=== PATIENT | male | born 1970 | race Caucasian/White ===

== ENCOUNTER 2020-03-11 12:38 | Emergency (ER) | payer BC, OTHER ==
--- NOTE | 2020-03-11 13:36 | ER Document Report ---
ED General - General Chief Complaint: Sore Throat Stated Complaint: HEARING LOSS/CONGESTION Notes: Patient is a 50-year-old male with a history of hypertension, chronic pain, cluster headaches who presents to the emergency department the chief complaint of hearing trouble. The patient states she was seen recently outpatient at an urgent care diagnosed with sinusitis and started on Augmentin. Patient reports he took his first dose of Augmentin last night after dinner and about 2 hours later began vomiting with some scant diarrhea. He ceased to the medication, called today for alternate prescription to which they advised he come in for evaluation and the patient reports upon arrival they could not find them in the system and told him to come to the emergency department for evaluation. He denies any fever or recent travel. Denies any rashes or coughing. He admits to an irritated, scratchy throat. States there is no pain with swallowing. States he has some nasal congestion and a frontal headache that is intermittent, worse on the right frontal but states the worst of his symptoms are muffled hearing that waxes and wanes in both years. Denies any ongoing vomiting or diarrhea. No abdominal pain. No known sick contacts. No known exposures to coronavirus. Past Medical History - Social History Smoking Status: Current Every Day Smoker Chew tobacco use (# tins/day): No Frequency of alcohol use: Occasional Drug Abuse: None Family History: Reviewed & Not Pertinent Patient has homicidal ideation: No - Past Medical History Cardiac Medical History: Reports: Hx Hypertension GI Medical History: Reports: Hx Gastroesophageal Reflux Disease Past Surgical History: Reports: Hx Nose Surgery, Hx Orthopedic Surgery - knees Review of Systems - Review of Systems Notes: As per HPI otherwise negative Physical Exam - Vital signs Vitals: Temp 98.2 F 03/11/20 13:05 - General General appearance: Appears well, Alert In distress: None - HEENT Head: Normocephalic, Atraumatic Eyes: Normal Conjunctiva: Normal Extraocular movements intact: Yes Eyelashes: Normal Pupils: PERRL Ears: Other - Normal external ears External canal: Normal Tympanic membrane: Other - Bulging TMs bilaterally with posterior effusions. Both TMs are pearly orozco. Sinus: Tenderness - Right frontal Nasal: Other - Turbinate edema and erythema bilaterally. Mouth/Lips: Normal Mucous membranes: Dry Pharynx: Erythema - Erythematous posterior pharynx. Minimal postnasal drainage. No edema. Uvula midline. Palate secretions well. No sublingual or submental swelling. No trismus. Neck: Normal. No: Lymphadenopathy - Respiratory Respiratory status: No respiratory distress Chest status: Nontender Breath sounds: Normal Chest palpation: Normal - Cardiovascular Rhythm: Regular Heart sounds: Normal auscultation - Neurological Neuro grossly intact: Yes Cognition: Normal Orientation: AAOx4 - Psychological Associated symptoms: Normal affect, Normal mood - Skin Skin Temperature: Warm Skin Moisture: Dry Skin Color: Normal Course - Re-evaluation Re-evalutation: 03/11/20 13:36 Patient with a history and physical consistent with a sinusitis. He will discontinue Augmentin. He will be started on a Medrol Dosepak and Claritin. Encouraged push clear fluids and rest. Counseled he return here or any ER immediately with any new, persistent or worsening symptoms. He will follow-up with his doctor in 2 to 3 days for reevaluation or sooner if worsening. He verbalized understood and agreed. - Vital Signs Vital signs: Temp Pulse Resp BP Pulse Ox 98.2 F 88 16 188/106 H 96 03/11/20 13:12 03/11/20 13:12 03/11/20 13:12 03/11/20 13:12 03/11/20 13:12 Discharge - Discharge Clinical Impression: History of hypertension Sinusitis Qualifiers: Sinusitis location: unspecified location Chronicity: acute Recurrence: not specified as recurrent Qualified Code(s): J01.90 - Acute sinusitis, unspecified Condition: Stable Disposition: HOME, SELF-CARE Instructions: Sinusitis ([facility]) Additional Instructions: Follow-up with your regular doctor in 2 to 3 days for reevaluation. Return here or any ER immediately with any new, persistent or worsening symptoms. Prescriptions: Loratadine [Allergy Relief] 10 mg PO DAILY #15 tablet Methylprednisolone [Medrol Dosepack (4 mg/Tab) 21 Tab/Dosepak] 4 mg PO ASDIR PRN #21 tab.ds.pk PRN Reason:
[2020-03-11 13:40] VITALS: BP 166/95
== END 2020-03-11 13:40 | disposition home or self-care (01) ==
LOC: ER 12:38
DX: J01.90 Acute sinusitis, unspecified (principal); I10 Essential (primary) hypertension; J02.9 Acute pharyngitis, unspecified; G89.29 Other chronic pain; R11.10 Vomiting, unspecified; R19.7 Diarrhea, unspecified; F17.200 Nicotine dependence, unspecified, uncomplicated
CPT/HCPCS: 99283

== ENCOUNTER 2020-04-05 17:38 | Emergency (ER) | payer OTHER ==
[2020-04-05] MEDS ORDERED: KETOROLAC TROMETHAMINE INJ/PF 30 MG/1 ML SDV IV ONE (18:20)
--- NOTE | 2020-04-05 18:21 | ER Document Report ---
ED Medical Screen (RME) - General Chief Complaint: Flank Pain Stated Complaint: FLANK PAIN Time Seen by Provider: 04/05/20 18:15 Primary Care Provider: PHYLLIS GARCÍA [Primary Care Provider] - Follow up as needed Notes: HPI: 50-year-old male with kidney stone history presenting with 6 days of a fairly constant right lower back pain. Has not had nausea vomiting questionable fevers. No penile or testicular pain no dysuria. No hematuria. Patient went to [facility] 2 days ago and they did a urinalysis did not show evidence of hematuria but placed him on Flomax and Vicodin for the discomfort. States the pain usually in the right lower back is worse in the morning seems to ease up throughout the day but has been fairly constant. Today he went to bend over to put socks on and had pain into the right lower quadrant region. Denies a specific trauma or injury PHYSICAL EXAMINATION: Mild tenderness through the right lower back right lateral flank region on palpation exam deferred in triage I have greeted and performed a rapid initial assessment of this patient. A comprehensive ED assessment and evaluation of the patient, analysis of test results and completion of medical decision making process will be conducted by an additional ED providers. - Related Data Allergies/Adverse Reactions: amoxicillin [From Augmentin] Allergy (Verified 04/05/20 18:13) clavulanic acid [From Augmentin] Allergy (Verified 04/05/20 18:13) Past Medical History - Social History Frequency of alcohol use: None Drug Abuse: None - Past Medical History Cardiac Medical History: Reports: Hx Hypertension GI Medical History: Reports: Hx Gastroesophageal Reflux Disease Past Surgical History: Reports: Hx Nose Surgery, Hx Orthopedic Surgery - knees Physical Exam - Vital signs Vitals: Temp Pulse Resp BP Pulse Ox 98.5 F 97 16 158/87 H 98 04/05/20 17:42 04/05/20 17:42 04/05/20 17:42 04/05/20 17:42 04/05/20 17:42 Course - Vital Signs Vital signs: Temp Pulse Resp BP Pulse Ox 98.5 F 97 16 158/87 H 98 04/05/20 17:42 04/05/20 17:42 04/05/20 17:42 04/05/20 17:42 04/05/20 17:42 Doctor's Discharge - Discharge Referrals: RICKY,PHYLLIS [Primary Care Provider] - Follow up as needed
[2020-04-05 19:04] LABS: ABSOLUTE EOSINOPHILS # (AUTO) 0.3 10^3/uL (0.0-0.6); ABSOLUTE LYMPHOCYTES (AUTO) 2.2 10^3/uL (0.5-4.7); ABSOLUTE MONOCYTES (AUTO) 0.8 10^3/uL (0.1-1.4); BASOPHILS % (AUTO) 0.4 % (0-2); EOSINOPHILS % (AUTO) 4.4 % (0-6); HEMATOCRIT 42.7 % (37.9-51.0); HEMOGLOBIN 14.8 g/dL (13.5-17.0); LYMPHOCYTES % (AUTO) 34.7 % (13-45); MEAN CORPUSCULAR HEMOGLOBIN 33.4 pg (27.0-33.4); MEAN CORPUSCULAR HGB CONC 34.7 g/dL (32.0-36.0); MEAN CORPUSCULAR VOLUME 96 fl (80-97); MONOCYTES % (AUTO) 13.2 % (3-13); PLATELET COUNT 307 10^3/uL (150-450); RED BLOOD COUNT 4.44 10^6/uL (4.35-5.55); RED CELL DISTRIBUTION WIDTH 14.4 % (11.5-14.0); SEGMENTED NEUTROPHILS % (AUTO) 47.3 % (42-78); TOTAL CELLS COUNTED % (AUTO) 100 %; WHITE BLOOD COUNT 6.3 10^3/uL (4.0-10.5)
[2020-04-05 19:07] LABS: APPEARANCE,URINE CLEAR; BILIRUBIN,URINE NEGATIVE (NEGATIVE); COLOR,URINE YELLOW; GLUCOSE, URINE NEGATIVE (NEGATIVE); KETONES,URINE NEGATIVE (NEGATIVE); LEUKOCYTE ESTERASE,URINE NEGATIVE (NEGATIVE); NITRITE,URINE NEGATIVE (NEGATIVE); PROTEIN,URINE NEGATIVE (NEGATIVE); URINE SPECIFIC GRAVITY 1.014; UROBILINOGEN,URINE NEGATIVE mg/dL (<2.0)
[2020-04-05 19:22] LABS: ALBUMIN 4.3 g/dL (3.5-5.0); ALKALINE PHOSPHATASE 116 U/L (38-126); ANION GAP 5 (5-19); ASPARTATE AMINO TRANSFERASE 26 U/L (17-59); BILIRUBIN,DIRECT 0.1 mg/dL (0.0-0.4); BILIRUBIN,TOTAL 0.3 mg/dL (0.2-1.3); BLOOD UREA NITROGEN 18 mg/dL (7-20); CALCIUM 10.1 mg/dL (8.4-10.2); CARBON DIOXIDE 33 mmol/L (22-30); CHLORIDE 99 mmol/L (98-107); GLUCOSE 98 mg/dL (75-110); POTASSIUM 3.8 mmol/L (3.6-5.0)
--- NOTE | 2020-04-05 20:28 | RADIOLOGY REPORT (SQ) ---
CT ABDOMEN PELVIS WITH IV CONTRAST HISTORY: Right flank pain. COMPARISON: None. TECHNIQUE: CT scan of the abdomen and pelvis was performed with IV contrast. This exam was performed according to our departmental dose-optimization program, which includes automated exposure control, adjustment of the mA and/or kV according to patient size and/or use of iterative reconstruction technique. FINDINGS: The lung bases are clear. No pleural or pericardial effusions. There is no hiatal hernia. The gallbladder is contracted, limiting evaluation. The liver, spleen, pancreas, adrenal glands, and left kidney are unremarkable. There is a 4 mm obstructing stone in the proximal right ureter but without hydronephrosis. The pelvic organs are normal. There has been a prior appendectomy. The remainder of the small and large bowel, including the stomach, are normal. No intraperitoneal adenopathy, free fluid or free air is seen. The aorta is normal caliber and contains atherosclerotic calcifications. There are mild degenerative changes of the spine. No abnormal hernia is seen. IMPRESSION: 4 mm obstructing stone in the proximal right ureter without hydronephrosis at this time.
--- NOTE | 2020-04-05 22:35 | ER Document Report ---
ED GI/ - General Chief Complaint: Flank Pain Stated Complaint: FLANK PAIN Time Seen by Provider: 04/05/20 18:15 Primary Care Provider: RADHA MIDDLETON MD [NO LOCAL MD] - Follow up as needed [facility] [Primary Care Provider] - Follow up as needed Mode of Arrival: Ambulatory Information source: Patient Notes: Patient is a 50-year-old male comes to emergency room with complaint of right flank pain. Patient states he knows he has a history of kidney stones proximally 2 months ago and he did get infected but he passed it on his own. He went to [facility] and was told that if his pain got out of control that he should go directly to the emergency room because they can fix it right away. Patient had an increase in discomfort and pain on his right side so he came into the emergency room. He had [facility] and he still has some. Patient received Toradol here in the emergency room and did get good relief down to about a 2 out of 5 but is now starting to build again. Patient does state that he does go to the [facility] and needs a referral to urology. TRAVEL OUTSIDE OF THE [place] IN LAST 30 DAYS: No - HPI Patient complains to provider of: Flank pain Onset: Yesterday - 2 days Timing/Duration: Gradual Quality of pain: Cramping, Sharp, Throbbing Severity at maximum: Moderate Pain Level: 3 Location: Right flank Associated symptoms: Nausea. denies: Chills, Dysuria, Hematuria, Vomiting Exacerbated by: Denies Relieved by: Denies Similar symptoms previously: Yes Recently seen / treated by doctor: Yes - Related Data Allergies/Adverse Reactions: amoxicillin [From Augmentin] Allergy (Verified 04/05/20 18:13) clavulanic acid [From Augmentin] Allergy (Verified 04/05/20 18:13) Past Medical History - General Information source: Patient - Social History Smoking Status: Current Every Day Smoker Cigarette use (# per day): Yes - Half pack Chew tobacco use (# tins/day): No Smoking Education Provided: Yes Frequency of alcohol use: None Drug Abuse: None Lives with: Family Family History: Reviewed & Not Pertinent - Past Medical History Cardiac Medical History: Reports: Hx Hypertension GI Medical History: Reports: Hx Gastroesophageal Reflux Disease Past Surgical History: Reports: Hx Nose Surgery, Hx Orthopedic Surgery - knees Review of Systems - Review of Systems Constitutional: No symptoms reported EENT: No symptoms reported Cardiovascular: No symptoms reported Respiratory: No symptoms reported Gastrointestinal: No symptoms reported Genitourinary: See HPI, Flank pain Male Genitourinary: No symptoms reported Musculoskeletal: No symptoms reported Skin: No symptoms reported Hematologic/Lymphatic: No symptoms reported Neurological/Psychological: No symptoms reported -: Yes All other systems reviewed and negative Physical Exam - Vital signs Vitals: Temp Pulse Resp BP Pulse Ox 98.5 F 97 16 158/87 H 98 04/05/20 17:42 04/05/20 17:42 04/05/20 17:42 04/05/20 17:42 04/05/20 17:42 Interpretation: Hypertensive - Notes Notes: PHYSICAL EXAMINATION: GENERAL: Patient is well-nourished well-developed 50-year-old male no apparent distress on physical exam today. Does appear a little uncomfortable. ENT: Nares patent, oropharynx clear without exudates. Moist mucous membranes. NECK: Normal range of motion, supple without lymphadenopathy LUNGS: Breath sounds clear to auscultation bilaterally and equal. No wheezes rales or rhonchi. HEART: Regular rate and rhythm without murmurs ABDOMEN: Soft, nontender, nondistended abdomen. No guarding, no rebound. No masses appreciated. Does display some mild tenderness to palpation and percussion on the right flank area. Musculoskeletal: Normal range of motion, no pitting or edema. No cyanosis. NEUROLOGICAL: Normal speech, normal gait. Normal sensory, motor exams PSYCH: Normal mood, normal affect. SKIN: Warm, Dry, normal turgor, no rashes or lesions noted. Course - Re-evaluation Re-evalutation: 04/05/20 22:[address] showed a 4 mm stone proximal ureter on the right side. There was no blood in his urine and no WBCs in the urine. Patient's pain on a scale of 1-10 was rated about a 5-6. He is controlled trouble with abdominal pain. We will send him home given a consult to urologist at [facility] urology first thing in the morning. - Vital Signs Vital signs: Temp Pulse Resp BP Pulse Ox 98.3 F 91 17 150/73 H 99 04/05/20 23:00 04/05/20 23:00 04/05/20 23:00 04/05/20 23:00 04/05/20 23:00 - Laboratory Result Diagrams: 04/05/20 18:29 04/05/20 18:29 Laboratory results interpreted by me: 04/05/20 04/05/20 18:29 18:29 RDW 14.4 H Hubbard % (Auto) 13.2 H Sodium 136.7 L Carbon Dioxide 33 H Discharge - Discharge Clinical Impression: Ureterolithiasis Condition: Stable Disposition: HOME, SELF-CARE Instructions: Kidney Stone ([facility]) Additional Instructions: I am giving the name of the urology group that is here in town you can contact her office first thing in the morning to see if they can accommodate you. As we discussed you have a 4 mm stone proximal ureter on the right side. This means is just coming out of the kidney and just now starting to cause some discomfort for you. Need to follow-up with the urologist as soon as possible. [facility] but the urology team here is very good. Forms: Elevated Blood Pressure, Smoking Cessation Education Referrals: [facility] [Primary Care Provider] - Follow up as needed RADHA MIDDLETON MD [NO LOCAL MD] - Follow up as needed
[2020-04-06 00:08] VITALS: BP 150/73
== END 2020-04-05 23:01 | disposition home or self-care (01) ==
LOC: ER 17:38
DX: N20.1 Calculus of ureter (principal); R10.9 Unspecified abdominal pain; R11.0 Nausea; F17.210 Nicotine dependence, cigarettes, uncomplicated; I10 Essential (primary) hypertension; Z88.0 Allergy status to penicillin; R10.819 Abdominal tenderness, unspecified site
CPT/HCPCS: 99284; 96374; 36415; 83690; 85025; 80053; 81001; 74177; J1885